=== PATIENT | female | born 1955 | race Caucasian/White ===

== ENCOUNTER → 2017-03-16 | Outpatient (CLI) | payer BC ==
[~2017-03-16] MED LIST: CHLO50TA PO; MELO7.5T6 PO; PRM/45 PO; TRAM-453 PO
--- NOTE | 2017-03-16 15:31 | MAMMOGRAPHY REPORT ---
BILATERAL DIGITAL SCREENING MAMMOGRAM TOMOSYNTHESIS WITH CAD: 03/16/2017 CLINICAL HISTORY: Routine screening. TECHNIQUE: Breast tomosynthesis in addition to standard 2D mammography was performed. Current study was also evaluated with a Computer Aided Detection (CAD) system. COMPARISON: Comparison is made to exams dated: 03/10/2016 mammogram, 02/26/2015 mammogram, 02/25/2014 [facility] mogram, 02/18/2013 mammogram, 07/12/2011 mammogram - [facility], and 05/04/2009. BREAST COMPOSITION: There are scattered areas of fibroglandular density in both breasts. FINDINGS: There are stable asymmetries in the lateral aspect of each breast. No new suspicious mass, architectural distortion or cluster of microcalcifications is seen. IMPRESSION: ACR BI-RADS CATEGORY 1: NEGATIVE There is no mammographic evidence of malignancy. A 1 year screening mammogram is recommended. The pa tient will receive written notification of the results. Approximately 10% of breast cancers are not detected with mammography. A negative mammographic report should not delay biopsy if a clinically suggestive mass is present. Molly Gamino M.D. ay/:03/16/2017 14:18:45 Drafter Civil: Dawson SCHMIDT(Johanne)([place]), [facility] letter sent: Normal 1/2 BI-RADS Code: ACR BI-RADS Category 1: Negative
== END | disposition home or self-care (01) ==
LOC: C.MAMM 10:34
PROVIDERS: ATTEND Family Medicine
DX: Z12.31 Encounter for screening mammogram for malignant neoplasm of breast (principal)

== ENCOUNTER 2020-05-30 10:31 | Inpatient (IN) ==
[2020-05-30] MEDS ORDERED: SODIUM CHLORIDE 0.9% 1000ML 2,000 ML IV ONE (10:48)
[2020-05-30] MEDS ORDERED: MoRPHine SULFATE 4 MG/ML 1 ML CARP\\VIAL IV STA (10:48)
--- NOTE | 2020-05-30 10:53 | Emergency Department Note ---
Impression & Plan Acute flank pain, Fever, Abdominal pain, Back pain ED Provider Note NAME: DHRUV LO AGE: 64 SEX: F : 1955 ARRIVES VIA: Walk-In INFORMANT: Patient ED PROVIDER(S): Seth Michaels DO CHIEF COMPLAINT: Right flank pain HPI: Patient is a 64-year-old female who has been having left hip pain for the past 3 to 4 months off and on. It gradually moved to her bilateral lower back and now is located on her right flank. She notes the right flank pain has been present since this past or Sunday. She admits to a fever last night of 101. She admits to nausea. She believes nausea is secondary to the pain. Pain comes up to the right side of her abdomen and she has right lower quadrant pain. She has a previous total hysterectomy. No other abdominal surgeries. No dysuria urgency or frequency. Denies any chest pain or shortness of breath. No other exacerbating or remitting factors. ROS: See above HPI for pertinent positives & negatives. A total of 10 systems reviewed and were otherwise negative. PAST MEDICAL HISTORY:See Below PAST SURGICAL HISTORY:See Below FAMILY HISTORY:See Below SOCIAL HISTORY:See Below HOME MEDICATIONS:See Below ALLERGIES:See Below VITALS:See Below PHYSICAL EXAMINATION: GENERAL: Sitting up in bed, alert, well appearing, well nourished, no distress, non-toxic EYE EXAM: normal conjunctiva. OROPHARYNX: no exudate, no erythema, lips, buccal mucosa, and tongue normal and mucous membranes are moist NECK: supple, no nuchal rigidity, no adenopathy, non-tender LUNGS: Clear to auscultation. Normal chest wall mechanics HEART: no murmurs, S1 normal and S2 normal ABDOMEN: abdomen soft, tender palpation throughout right flank and right lower quadrant, normo-active bowel sounds, no masses, no rebound or guarding. BACK: Significant pain on palpation of right gluteus and lower back. SKIN: no rashes and no bruising UPPER EXTREMITIES: upper extremities are grossly normal. LOWER EXTREMITIES: Flexion and extension of the hips, knees, ankles, and EHL 5/5 bilaterally. Gross sensation is intact. DPs are 2/4 bilateral. Patellar and Achilles reflexes are 2/4 bilateral NEURO EXAM: Normal sensorium, cranial nerves II-XII grossly intact, normal speech, no gross weakness of arms, no gross weakness of legs. MEDICAL DECISION MAKING: Patient is a 64-year-old female who presents the ER for symptoms as initially started of her left hip and now has been in the right flank. IV was established blood work was obtained. Complaining of fevers at home. Presentation she was found be tachycardic at 110. Vitals were otherwise stable. Labs show no significant leukocytosis or anemia. INR was unremarkable. BMP with chloride of 109. LFTs bilirubin was unremarkable. Lipase was normal. UA was contaminated with multiple epithelial cells. Do not believe is consistent with infection. C T abdomen pelvis and lumbar spine showed no acute pathology. MRI of the lumbar spine was performed due to the midline lower back pain and fevers. This was unremarkable but did show some T2 signaling in the paraspinal region. Question inflammation versus infection. Patient was given a dose of IV antibiotics after long discussion. She was given IV narcotics as well as 1 dose of Ativan to get through the MR as she is claustrophobic. She was updated bedside discussed with the hospitalist for further evaluation and observation. Triage Nursing notes reviewed. Prior medical records reviewed Vital Signs: reviewed and remarkable for tachycardia Differential diagnosis: Differential diagnosis includes etiologies such as sepsis, UTI, pneumonia, metabolic, electrolyte abnormalities, cardiac sources, intracerebral event, toxicologic, neurological, as well as others were entertained. ER treatment provided: See below Diagnostics interpreted by me: ECG: none Cardiac Monitoring: An order was placed for continuous cardiac monitoring. The monitor shows a rate of 101 with sinus rhythm. Laboratory studies: As stated above and show below. Imaging studies: CT abdomen pelvis and CT lumbar spine showed no acute pathology MR lumbar spine shows T2 signal flair paraspinal musculature Consultation(s): Discussed with Dr. Jose L Gil for further evaluation. ED COURSE: Procedures: none Critical Care: None Past Med/Surg History Medical History (Updated 05/30/20 @ 16:33 by Seth Michaels DO) ASD (atrial septal defect) Idiopathic peripheral neuropathy Migraine headache Nephrolithiasis Ovarian cyst Vitamin D deficiency Surgical History (Updated 11/20/19 @ 14:12 by Erika Bello PA-C) History of cardiac catheterization History of dilatation and curettage History of foot surgery History of hysterectomy History of laparoscopy History of lithotripsy History of total left knee replacement History of tubal ligation Family History (Updated 11/20/19 @ 14:14 by Erika Bello PA-C) Mother Dementia Diabetes Heart disease Father Diabetes Heart disease Sister Diabetes Other Cancer Social History Smoking Status: Never smoker Hx Alcohol Use: Yes Hx Substance Use: No marital status: current occupational status: employed current occupation: reservations manager Feels Safe at Home: Yes Allergies Allergies Allergy/AdvReac Type Severity Reaction Status Date / Time Iodinated Contrast Media Allergy Unknown RESP Verified 05/30/20 12:29 DISTRESS, SWELLING, HIVES FROM CONTRAST MEDIA levofloxacin [From Levaquin] Allergy Verified 05/30/20 12:29 Home Meds Home Medications Medication Instructions Recorded Confirmed aspirin 81 mg tablet,delayed 81 mg PO QAM tab 05/28/19 05/30/20 release nitroglycerin 0.4 mg sublingual 0.4 mg SL UD tab 05/28/19 05/30/20 tablet Previous Rx's Medication Instructions Recorded CPAP Machine #1 [id number] 05/30/19 Results & Data (ED) Vital Signs Vital Signs - 24 hr 05/30/20 10:33 05/30/20 11:01 05/30/20 11:31 Temperature 37.6 C H Temperature Source Oral Pulse Rate 109 H 83 76 Pulse Rate [Finger] Pulse Rate from SpO2 Sensor 84 76 Respiratory Rate 18 17 25 H Respiratory Effort / Characteristics Non-Labored Spontaneous Respiratory Depth Normal Blood Pressure 118/82 144/68 H 108/96 Blood Pressure [Left Arm] Blood Pressure Mean 94 79 99 Blood Pressure Mean [Left Arm] Pulse Oximetry 93 96 94 Oxygen Delivery Method Room Air Sepsis Recent Fever Within 48 Hours No Sepsis New/Unexplained Change in Mental Status N/A Sepsis Action Taken by Nursing No Action Required 05/30/20 12:01 05/30/20 12:16 05/30/20 12:30 Temperature Temperature Source Pulse Rate 72 81 84 Pulse Rate [Finger] Pulse Rate from SpO2 Sensor 76 80 81 Respiratory Rate 18 18 13 Respiratory Effort / Characteristics Respiratory Depth Blood Pressure 92/56 L 125/56 L 131/81 Blood Pressure [Left Arm] Blood Pressure Mean 66 82 112 Blood Pressure Mean [Left Arm] Pulse Oximetry 96 97 96 Oxygen Delivery Method Sepsis Recent Fever Within 48 Hours Sepsis New/Unexplained Change in Mental Status Sepsis Action Taken by Nursing 05/30/20 12:38 05/30/20 14:17 05/30/20 14:18 Temperature 36.9 C Temperature Source Oral Pulse Rate Pulse Rate [Finger] 80 Pulse Rate from SpO2 Sensor Respiratory Rate 14 Respiratory Effort / Characteristics Non-Labored Spontaneous Respiratory Depth Blood Pressure Blood Pressure [Left Arm] 102/64 Blood Pressure Mean Blood Pressure Mean [Left Arm] 76 Pulse Oximetry 94 94 Oxygen Delivery Method Room Air Room Air Sepsis Recent Fever Within 48 Hours Sepsis New/Unexplained Change in Mental Status Sepsis Action Taken by Nursing Laboratory Data Result diagrams: 05/30/20 10:59 05/30/20 10:59 Lab Results 05/30/20 05/30/20 05/30/20 Range/Units 10:54 10:59 10:59 WBC 10.51 (4.8-10.8) K/uL RBC 4.43 (4.2-5.4) M/uL Hgb 13.0 (12.0-16.0) g/dL Hct 39.8 (37-47) % MCV 89.8 (80-100) fL MCH 29.3 (25-34) pg MCHC 32.7 (32-36) g/dL RDW Std Deviation 45.6 (36.4-46.3) fL RDW Coeff of Taras 13.8 (11.5-14.5) % Plt Count 269 (130-400) K/uL MPV 9.4 (7.4-10.4) fL Immature Gran % (Auto) 0.2 % Neut % (Auto) 81.0 % Lymph % (Auto) 11.3 % [place] % (Auto) 6.8 % Eos % (Auto) 0.6 % Baso % (Auto) 0.1 % Neut # (Auto) 8.52 H (1.4-6.5) K/uL Lymph # (Auto) 1.19 L (1.2-3.4) K/uL [place] # (Auto) 0.71 H (0.11-0.59) K/uL Eos # (Auto) 0.06 (0-0.5) K/uL Baso # (Auto) 0.01 (0-0.2) K/uL Immature Gran # (Auto) 0.02 (0.00-0.02) K/uL ESR (0-21) mm/hr PT 11.4 (9.0-12.0) Seconds INR 1.1 (0.9-1.1) APTT 29.3 (21.0-31.0) Seconds PTT Ratio 1.1 Sodium (136-145) mmol/L Potassium (3.5-5.1) mmol/L Chloride (98-107) mmol/L Carbon Dioxide (21-32) mmol/L Anion Gap (3-11) BUN (7-18) mg/dl Creatinine (0.6-1.2) mg/dl Est Cr Clr Drug Dosing ml/min Est GFR ( Amer) Est GFR (Non-Af Amer) BUN/Creatinine Ratio (10-20) Glucose (70-99) mg/dl Lactate (0.4-2.0) mmol/L Calcium (8.5-10.1) mg/dl Magnesium (1.8-2.4) mg/dl Total Bilirubin (0.2-1) mg/dl AST (15-37) U/L ALT (12-78) U/L Alkaline Phosphatase (45-117) U/L Total Protein (6.4-8.2) gm/dl Albumin (3.4-5.0) gm/dl Globulin (2.5-4.0) gm/dl Albumin/Globulin Ratio (0.9-2) Lipase (73-393) U/L Procalcitonin (0-0.5) ng/ml Urine Color Dark Yellow Urine Appearance Clear (Clear) Urine pH 5.0 (4.5-7.5) Ur Specific [place] 1.026 (1.000-1.030) Urine Protein Negative (Negative) Urine Glucose (UA) Negative (Negative) Urine Ketones Negative (Negative) Urine Blood Trace H (Negative) Urine Nitrite Negative (Negative) Urine Bilirubin Negative (Negative) Urine Urobilinogen Negative (Negative) Ur Leukocyte Esterase Trace H (Negative) Urine WBC (Auto) 1-5 (0-5) /hpf Urine RBC (Auto) 0-4 (0-4) /hpf U Hyaline Cast (Auto) 1-5 (0-5) /lpf U Epithel Cells (Auto) >30 H (0-5) /lpf Urine Bacteria (Auto) 1+ H (Negative) Urine Mucus Present A (None Prsent) 05/30/20 05/30/20 05/30/20 Range/Units 10:59 10:59 10:59 WBC (4.8-10.8) K/uL RBC (4.2-5.4) M/uL Hgb (12.0-16.0) g/dL Hct (37-47) % MCV (80-100) fL MCH (25-34) pg MCHC (32-36) g/dL RDW Std Deviation (36.4-46.3) fL RDW Coeff of Taras (11.5-14.5) % Plt Count (130-400) K/uL MPV (7.4-10.4) fL Immature Gran % (Auto) % Neut % (Auto) % Lymph % (Auto) % [place] % (Auto) % Eos % (Auto) % Baso % (Auto) % Neut # (Auto) (1.4-6.5) K/uL Lymph # (Auto) (1.2-3.4) K/uL [place] # (Auto) (0.11-0.59) K/uL Eos # (Auto) (0-0.5) K/uL Baso # (Auto) (0-0.2) K/uL Immature Gran # (Auto) (0.00-0.02) K/uL ESR (0-21) mm/hr PT (9.0-12.0) Seconds INR (0.9-1.1) APTT (21.0-31.0) Seconds PTT Ratio Sodium 138 (136-145) mmol/L Potassium 3.7 (3.5-5.1) mmol/L Chloride 109 H (98-107) mmol/L Carbon Dioxide 22 (21-32) mmol/L Anion Gap 8.0 (3-11) BUN 15 (7-18) mg/dl Creatinine 0.88 (0.6-1.2) mg/dl Est Cr Clr Drug Dosing 72.8 ml/min Est GFR ( Amer) 81.6 Est GFR (Non-Af Amer) 70.4 BUN/Creatinine Ratio 17.6 (10-20) Glucose 123 H (70-99) mg/dl Lactate 1.4 (0.4-2.0) mmol/L Calcium 8.8 (8.5-10.1) mg/dl Magnesium 2.1 (1.8-2.4) mg/dl Total Bilirubin 0.8 (0.2-1) mg/dl AST 15 (15-37) U/L ALT 22 (12-78) U/L Alkaline Phosphatase 69 (45-117) U/L Total Protein 8.3 H (6.4-8.2) gm/dl Albumin 3.3 L (3.4-5.0) gm/dl Globulin 5.0 H (2.5-4.0) gm/dl Albumin/Globulin Ratio 0.7 L (0.9-2) Lipase 108 (73-393) U/L Procalcitonin (0-0.5) ng/ml Urine Color Urine Appearance (Clear) Urine pH (4.5-7.5) Ur Specific [place] (1.000-1.030) Urine Protein (Negative) Urine Glucose (UA) (Negative) Urine Ketones (Negative) Urine Blood (Negative) Urine Nitrite (Negative) Urine Bilirubin (Negative) Urine Urobilinogen (Negative) Ur Leukocyte Esterase (Negative) Urine WBC (Auto) (0-5) /hpf Urine RBC (Auto) (0-4) /hpf U Hyaline Cast (Auto) (0-5) /lpf U Epithel Cells (Auto) (0-5) /lpf Urine Bacteria (Auto) (Negative) Urine Mucus (None Prsent) 05/30/20 05/30/20 Range/Units 10:59 10:59 WBC (4.8-10.8) K/uL RBC (4.2-5.4) M/uL Hgb (12.0-16.0) g/dL Hct (37-47) % MCV (80-100) fL MCH (25-34) pg MCHC (32-36) g/dL RDW Std Deviation (36.4-46.3) fL RDW Coeff of Taras (11.5-14.5) % Plt Count (130-400) K/uL MPV (7.4-10.4) fL Immature Gran % (Auto) % Neut % (Auto) % Lymph % (Auto) % [place] % (Auto) % Eos % (Auto) % Baso % (Auto) % Neut # (Auto) (1.4-6.5) K/uL Lymph # (Auto) (1.2-3.4) K/uL [place] # (Auto) (0.11-0.59) K/uL Eos # (Auto) (0-0.5) K/uL Baso # (Auto) (0-0.2) K/uL Immature Gran # (Auto) (0.00-0.02) K/uL ESR 58 H (0-21) mm/hr PT (9.0-12.0) Seconds INR (0.9-1.1) APTT (21.0-31.0) Seconds PTT Ratio Sodium (136-145) mmol/L Potassium (3.5-5.1) mmol/L Chloride (98-107) mmol/L Carbon Dioxide (21-32) mmol/L Anion Gap (3-11) BUN (7-18) mg/dl Creatinine (0.6-1.2) mg/dl Est Cr Clr Drug Dosing ml/min Est GFR ( Amer) Est GFR (Non-Af Amer) BUN/Creatinine Ratio (10-20) Glucose (70-99) mg/dl Lactate (0.4-2.0) mmol/L Calcium (8.5-10.1) mg/dl Magnesium (1.8-2.4) mg/dl Total Bilirubin (0.2-1) mg/dl AST (15-37) U/L ALT (12-78) U/L Alkaline Phosphatase (45-117) U/L Total Protein (6.4-8.2) gm/dl Albumin (3.4-5.0) gm/dl Globulin (2.5-4.0) gm/dl Albumin/Globulin Ratio (0.9-2) Lipase (73-393) U/L Procalcitonin < 0.05 (0-0.5) ng/ml Urine Color Urine Appearance (Clear) Urine pH (4.5-7.5) Ur Specific [place] (1.000-1.030) Urine Protein (Negative) Urine Glucose (UA) (Negative) Urine Ketones (Negative) Urine Blood (Negative) Urine Nitrite (Negative) Urine Bilirubin (Negative) Urine Urobilinogen (Negative) Ur Leukocyte Esterase (Negative) Urine WBC (Auto) (0-5) /hpf Urine RBC (Auto) (0-4) /hpf U Hyaline Cast (Auto) (0-5) /lpf U Epithel Cells (Auto) (0-5) /lpf Urine Bacteria (Auto) (Negative) Urine Mucus (None Prsent) Administered Medications Discontinued Medications Gadobutrol (Gadobutrol 65ml Vial) 9 ml IV ONCE ONE Stop: 05/30/20 14:18 Last Admin: 05/30/20 14:18 Dose: 9 ml Documented by: [id number] Sodium Chloride (Nss 1000ml) 2,000 mls @ 999 mls/hr IV .Q2H1M ONE Stop: 05/30/20 12:48 Last Infusion: 05/30/20 12:59 Dose: 0 mls/hr Documented by: [id number] Admin: 05/30/20 11:10 Dose: 999 mls/hr Documented by: [id number] Lorazepam (Ativan) 1 mg in 2 mls @ 2 mls/min IV NOW STA Stop: 05/30/20 12:34 Last Admin: 05/30/20 12:51 Dose: 2 mls/min Documented by: [id number] Morphine Sulfate (Morphine Sulfate 4 Mg/Ml 1 Ml Carp\Vial) 4 mg IV NOW STA Stop: 05/30/20 10:49 Last Admin: 05/30/20 11:10 Dose: 4 mg Documented by: [id number] Ondansetron HCl (Ondansetron Inj 2 Mg/Ml 2 Ml Vial) Confirm Administered Dose 4 mg .ROUTE .STK-MED ONE Stop: 05/30/20 11:12 Last Admin: 05/30/20 11:20 Dose: 4 mg Documented by: [id number] Ondansetron HCl (Ondansetron Inj 2 Mg/Ml 2 Ml Vial) 4 mg IV NOW STA Stop: 05/30/20 12:03 Last Admin: 05/30/20 12:07 Dose: 4 mg Documented by: [id number] Discharge Plan Visit Data Chief Complaint: Back Injury/Pain Stated Complaint: RT HIP PAIN, LOWER BACK PAIN INTO GROIN ED Provider: Seth Michaels Discharge Problem: Acute flank pain, Fever, Abdominal pain, Back pain Forms Stand Alone Forms: [facility] Xlumena Prescriptions Prescriptions: No Action aspirin 81 mg tablet,delayed release (DR/EC) 81 mg PO QAM RF: 0 nitroglycerin 0.4 mg tablet, sublingual 0.4 mg SL UD RF: 0 (DME) CPAP Machine Misc See Dose Instructions .ROUTE .MEDSUPPLY Qty: 1 RF: 0 Discharge Problem: Fever Qualifiers: Fever type: unspecified Qualified Code(s): R50.9 - Fever, unspecified Abdominal pain Qualifiers: Abdominal location: unspecified location Qualified Code(s): R10.9 - Unspecified abdominal pain Back pain Qualifiers: Back pain location: low back pain Chronicity: acute Back pain laterality: right Sciatica presence: unspecified whether sciatica present Qualified Code(s): M54.5 - Low back pain
[2020-05-30] MEDS ORDERED: ONDANSETRON INJ 2 MG/ML 2 ML VIAL ONE (11:11)
[2020-05-30 11:12] LABS: Basophils # (auto) 0.01 K/uL (0-0.2); Basophils % (auto) 0.1 %; Eosinophils # (auto) 0.06 K/uL (0-0.5); Eosinophils % (auto) 0.6 %; Hematocrit (blood only) 39.8 % (37-47); Immature Granulocytes # (auto) 0.02 K/uL (0.00-0.02); Immature Granulocytes % (auto) 0.2 %; Lymphocytes # (auto) 1.19 K/uL (1.2-3.4); Lymphocytes % (auto) 11.3 %; Mean Corpuscular Hemoglobin 29.3 pg (25-34); Mean Corpuscular Hgb Conc 32.7 g/dL (32-36); Mean Corpuscular Volume 89.8 fL (80-100); Mean Platelet Volume 9.4 fL (7.4-10.4); Monocytes # (auto) 0.71 K/uL (0.11-0.59); Monocytes % (auto) 6.8 %; Neutrophils # (auto) 8.52 K/uL (1.4-6.5); Platelet Count 269 K/uL (130-400); RDW Coefficient of Variation 13.8 % (11.5-14.5); RDW Standard Deviation 45.6 fL (36.4-46.3); Red Blood Count 4.43 M/uL (4.2-5.4); White Blood Count 10.51 K/uL (4.8-10.8)
--- NOTE | 2020-05-30 11:13 | XRay Report ---
XR chest 1V portable CLINICAL HISTORY: SEPSIS COMPARISON STUDY: No previous studies for comparison. FINDINGS: The heart is at the upper limits of normal in size. There is no failure. There is no focal pulmonary consolidation. There are no pleural effusions. There are minor left basilar atelectatic emily nges[ IMPRESSION: No active disease in the chest. ACT 112: Negative or not required by law. Electronically signed by: Manuel Mace M.D. 05/30/2020 11:12 AM
[2020-05-30 11:22] LABS: INR 1.1 (0.9-1.1); Partial Thromboplastin Ratio 1.1; Partial Thromboplastin Time 29.3 Seconds (21.0-31.0); Prothrombin Time 11.4 Seconds (9.0-12.0)
[2020-05-30 11:28] LABS: Appearance Urine Clear (Clear); Bilirubin Urine Negative (Negative); Blood Urine Trace (Negative); Color Urine Dark Yellow; Epithelial Cell Urine Auto >30 /lpf (0-5); Glucose Urine UA Negative (Negative); Ketones Urine Negative (Negative); Leukocyte Esterase Urine Trace (Negative); Nitrite Urine Negative (Negative); Protein Urine Negative (Negative); RBC Urine Automated 0-4 /hpf (0-4); Specific Gravity Urine 1.026 (1.000-1.030); Urobilinogen Urine Negative (Negative)
[2020-05-30 11:29] LABS: Potassium 3.7 mmol/L (3.5-5.1)
[2020-05-30 11:30] LABS: Albumin Level 3.3 gm/dl (3.4-5.0); BUN Creatinine Ratio 17.6 (10-20); Calcium 8.8 mg/dl (8.5-10.1); Creatinine Clr Calc Pharmacy 72.8 ml/min; Est GFR (African American) 81.6; Est GFR (Non-African American) 70.4; Magnesium 2.1 mg/dl (1.8-2.4)
[2020-05-30 11:32] LABS: Albumin Globulin Ratio 0.7 (0.9-2); Bilirubin,Total 0.8 mg/dl (0.2-1); Total Protein 8.3 gm/dl (6.4-8.2)
[2020-05-30 12:02] LABS: Bacteria Urine Automated 1+ (Negative); Mucus Urine Present (None Prsent)
[2020-05-30] MEDS ORDERED: ONDANSETRON INJ 2 MG/ML 2 ML VIAL IV STA (12:02)
--- NOTE | 2020-05-30 12:10 | CT Scan Report ---
CT SCAN OF THE ABDOMEN AND PELVIS WITHOUT CONTRAST CLINICAL HISTORY: Right back and flank pain. Sepsis. COMPARISON STUDY: No previous studies for comparison. TECHNIQUE: CT scan of the abdomen and pelvis was performed from the lung bases to the proximal femurs . Images are reviewed in the axial, sagittal, and coronal planes. IV contrast was not administered fo r this examination. A dose lowering technique was utilized adhering to the principles of ALARA. CT DOSE: 1005.68 mGy.cm FINDINGS: Lower chest: There are basilar opacities likely atelectatic Liver: There is hepatic steatosis. No focal hepatic masses are visualized on this noncontrast examina tion Gallbladder: Unremarkable. Spleen: Normal in size and attenuation. Pancreas: Unremarkable. Adrenal glands: There is a 15 mm left adrenal adenoma. Kidneys: There are punctate lower pole right renal calcifications. There are bilateral parapelvic cys ts. There is no ureteral dilatation. There is a punctate calcification abutting the mid right ureter. As there is no ureteral dilatation, this likely represents a phlebolith. No bladder calculi are visu alized Bowel: There are no transition zones indicate bowel obstruction. There is colonic diverticulosis. The re is no evidence of acute diverticulitis. There is no evidence of acute appendicitis. Peritoneum: There is no intraperitoneal free air or abdominal ascites. Vasculature: The abdominal aorta is normal in course and caliber. Adenopathy: None. Pelvic viscera: The uterus is surgically absent Skeletal structures: No destructive osseous lesions are seen. IMPRESSION: 1. Punctate lower pole right renal calcifications 2. No ureteral or bladder calculi identified 3. Bilateral parapelvic renal cysts 4. No evidence of bowel obstruction. No evidence of free air 5. Diverticulosis. No evidence of acute diverticulitis. No evidence of acute appendicitis. 6. 15 mm left adrenal adenoma ACT 112: Negative or not required by law. Electronically signed by: Manuel Mace M.D. 05/30/2020 12:09 PM
--- NOTE | 2020-05-30 12:12 | CT Scan Report ---
CT lumbar spine wo con CT DOSE: CLINICAL HISTORY: lower back pain TECHNIQUE: Helical images were acquired in transverse plane. Reformatted sagittal and coronal images were reviewed. A dose lowering technique was utilized adhering to the principles of ALARA. CONTRAST: No contrast was administered COMPARISON STUDY: None. FINDINGS: L1-2 level: There is no evidence of significant disc bulge or focal herniation. There is no evidence of spinal or foraminal stenosis. L2-3 level: There is a mild circumferential disc bulge. There is mild spinal stenosis. The facet join t arthropathy. L3-4 level: There is a circumferential disc bulge with mild spinal stenosis. There is facet joint art hropathy. L4-5 level: There is a circumferential disc bulge with moderate spinal stenosis. There is facet joint arthropathy. L5-S1 level: There is no evidence of significant disc bulge or focal herniation. There is no evidence of spinal or foraminal stenosis. No fractures or subluxations are visualized. No destructive lesions are evident. IMPRESSION: 1. No acute fractures or subluxations identified 2. Mild to moderate multilevel spondylytic changes with multilevel disc bulges and multilevel spinal canal narrowing ACT 112: Negative or not required by law. Electronically signed by: Manuel Mace M.D. 05/30/2020 12:11 PM
[2020-05-30] MEDS ORDERED: LORazepam 1 MG/2 ML VIAL IV STA (12:33)
[2020-05-30] MEDS ORDERED: GADOBUTROL 65ML VIAL IV ONE (14:17)
--- NOTE | 2020-05-30 14:36 | Magnetic Resonance Report ---
MR lumbar spine wo/w con CLINICAL HISTORY: fever back pain TECHNIQUE: Sagittal and axial T1, T2 and STIR images were obtained. Images were acquired before and a fter the administration of 9 cc of intravenous Gadavist. COMPARISON STUDY: CT scan dated 05/30/2020 OBSERVATIONS: There are no areas of marrow replacement to indicate neoplasm. There are no areas of marrow edema to indicate discitis or osteomyelitis. L1-2: No disc protrusions or extrusions. No evidence of spinal canal or neural foraminal compromise. L2-3: There is a minor circumferential disc bulge. There is no significant spinal or foraminal stenos is. L3-4: There is a mild circumferential disc bulge. There is minimal spinal canal narrowing. There is n o significant foraminal stenosis L4-5: There is a mild circumferential disc bulge. There is facet joint arthropathy. There is mild spi nal stenosis. There is mild bilateral foraminal narrowing. L5-S1: No disc protrusions or extrusions. No evidence of spinal canal or neural foraminal compromise. Postcontrast studies demonstrate enhancement of the right paraspinal musculature extending from the L 3 to the S1 level. There are no fluid collections to indicate an abscess. This could be on an infecti ous or inflammatory noninfectious basis. Clinical correlation and follow-up recommended The conus medullaris and cauda equina appear normal. IMPRESSION: 1. No evidence of discitis or osteomyelitis 2. Mild multilevel spondylytic changes 3. T2 edema involving the right posterior paraspinal muscles extending from the L3 to the S1 level. T here is post gadolinium enhancement. This could be on an infectious or inflammatory noninfectious bas es. Clinical correlation and follow-up recommended. This finding has been reported in patients with a n epidural abscess although none is visualized on the current study. ACT 112: Negative or not required by law. Electronically signed by: Manuel Mace M.D. 05/30/2020 2:35 PM
[2020-05-30] MEDS ORDERED: PIPERACILLIN/TAZOBACTAM 4.5 GM/120 ML BAG IV ONE (15:21)
[2020-05-30] MEDS ORDERED: PIPERACILL/TAZOBAC CONSULT ACTIVE PRN ×2 (15:21→15:48)
--- NOTE | 2020-05-30 15:39 | History & Physical Report ---
Date of Service May 30, 2020 Assessment & Plan (1) Pain in right paraspinal region: -This is a 64 year old female with symptoms of lower right back pain radiating to right hip, sometimes right medial thigh tingling (may possibly be sciatica pain), with the pain symptoms x 1 week and then on 05/29/2020 she reported experience chills and then the body temperature measured at home to be 101.4 F. Patient presents to ED on 05/30/2020. -MRI Lumbar spine "No evidence of discitis or osteomyelitis. Mild multilevel spondylytic changes. T2 edema involving the right posterior paraspinal muscles extending from the L3 to the S1 level. There is post gadolinium enhancement. This could be on an infectious or inflammatory noninfectious bases. Clinical correlation and follow-up recommended. This finding has been reported in patients with an epidural abscess although none is visualized on the current study." -because of reported fever at home of 101.4, (afebrile on presentation to ED) emergency room doctor concerned that the right paraspinal region is a source of infection and started on IV Zosyn -continue IV Zosyn, follow the blood cultures, and inflammatory markers and creatinine kinase -trial of IV decadron 4 mg IV q8 hours for 24 hours -no history of diabetes mellitus, check HbA1c, check blood sugar glucose and give sliding scale insulin as needed while on IV decadron -prn acetaminophen as needed for pain of fever, prn oxycodone and prn dilaudid depending on pain severity -orthopedic consult -PT/OT evaluations (2) Ambulatory dysfunction: -patient's symptoms of lower right back pain radiating to right hip, sometimes right medial thigh tingling, may possibly be sciatica pain -patient reports that she walks "gingerly at home" -orthopedic consult -PT/OT evaluations (3) Fever: -reported fever as outpatient -IV antibiotics as above, expect WBC to rise with trial of decadron, follow blood cultures and orthopedic consult recommendations, prn acetaminophen as needed for pain of fever (4) ASD (atrial septal defect): -patient takes aspirin daily -patient denies other cardiac issues but she has prn nitroglycerin at home because in the past, when she gets chest discomforts she reports that her outpatient doctor are uncertain whether discomforts are ASD related or coronary artery related Atrophic Right Kidney -chronic outpatient [facility] records notes lists "Gammopathy" in medical problem list but patient denies to her knowledge of any blood disorders explained to her. she denies any personal history of cancer.hospitalist advised patient to discuss and clarify this "gammopathy" issue with her primary care Dr. Durán DVT prophylaxis: SCDs Full Code [place] [phone] History of Present Illness -This is a 64 year old female with symptoms of lower right back pain radiating to right hip, sometimes right medial thigh tingling (may possibly be sciatica pain), with the pain symptoms x 1 week and then on 05/29/2020 she reported experience chills and then the body temperature measured at home to be 101.4 F. Patient presents to ED on 05/30/2020. -MRI Lumbar spine "No evidence of discitis or osteomyelitis. Mild multilevel spondylytic changes. T2 edema involving the right posterior paraspinal muscles extending from the L3 to the S1 level. There is post gadolinium enhancement. This could be on an infectious or inflammatory noninfectious bases. Clinical correlation and follow-up recommended. This finding has been reported in patients with an epidural abscess although none is visualized on the current study." -because of reported fever at home of 101.4, (afebrile on presentation to ED) emergency room doctor concerned that the right paraspinal region is a source of infection and started on IV Zosyn On review of systems: patient denies headaches or dizziness. no nausea. no abdominal pain. no vomiting. no dysuria. no problems with bowel movements. she had a fall in September 2019 but no recent trauma. When asked about ambulation, patient reports she is walking "gingerly" Family Health history of diabetes mellitus Primary Care Provider: Beto Durán MD Allergies Allergy/AdvReac Type Severity Reaction Status Date / Time Iodinated Contrast Media Allergy Unknown RESP Verified 05/30/20 12:29 DISTRESS, SWELLING, HIVES FROM CONTRAST MEDIA levofloxacin [From Levaquin] Allergy Verified 05/30/20 12:29 Home Medications Home Medications Medication Instructions Recorded Confirmed Type aspirin 81 mg tablet,delayed 81 mg PO QAM tab 05/28/19 05/30/20 History release nitroglycerin 0.4 mg sublingual 0.4 mg SL UD tab 05/28/19 05/30/20 History tablet CPAP Machine #1 ea 05/30/19 09/01/19 Rx Past Med/Surg History Medical History (Updated 05/30/20 @ 16:06 by Jose L Gil MD) ASD (atrial septal defect) Idiopathic peripheral neuropathy Migraine headache Nephrolithiasis Ovarian cyst Vitamin D deficiency Surgical History (Updated 11/20/19 @ 14:12 by Erika Bello PA-C) History of cardiac catheterization History of dilatation and curettage History of foot surgery History of hysterectomy History of laparoscopy History of lithotripsy History of total left knee replacement History of tubal ligation Family History (Updated 11/20/19 @ 14:14 by Erika Bello PA-C) Mother Dementia Diabetes Heart disease Father Diabetes Heart disease Sister Diabetes Other Cancer Social History Smoking Status: Never smoker Hx Alcohol Use: Yes Hx Substance Use: No marital status: current occupational status: employed current occupation: manager medicaid Feels Safe at Home: Yes Review of Systems Review of Systems: All systems reviewed & are unremarkable except as noted in Subjective Physical Exam Constitutional: WD/WN, vitals as above Eyes: PERRL, conjunctivae normal, anicteric sclerae EOM intact bilaterally ENMT: external ear and nose normal, oropharynx normal Neck: trachea midline, no thyromegaly normal visual inspection Respiratory: normal respiratory effort, lungs clear to auscultation Cardiovascular: Rate/Rhythm: regular rate and regular rhythm Gastrointestinal (Abdomen): normal bowel sounds, soft, nontender, no hepatosplenomegaly Musculoskeletal: no point tenderness of back or right hip or thigh on palpation on my exam Neurologic: PERRL, EOMI, accommodation nl, no face palsy, no dysarthria moves all extremities Psychiatric: A+Ox3, euthymic affect Results & Data Results & [facility] ([facility]) Vital Signs (Past 12 Hours) Vital Signs Temp Pulse Pulse Resp BP BP Pulse Ox 05/30/20 14:18 94 05/30/20 14:17 80 14 102/64 94 05/30/20 12:38 36.9 C 05/30/20 12:30 84 13 131/81 96 05/30/20 12:16 81 18 125/56 L 97 05/30/20 12:01 72 18 92/56 L 96 05/30/20 11:31 76 25 H 108/96 94 05/30/20 11:01 83 17 144/68 H 96 05/30/20 10:33 37.6 C H 109 H 18 118/82 93
[2020-05-30] MEDS ORDERED: HYDROmorphone INJ 0.5 MG/0.5 ML SYR IV PRN (15:40)
[2020-05-30] MEDS ORDERED: ACETAMINOPHEN 325 MG TAB PO PRN (15:40)
[2020-05-30] MEDS ORDERED: NITROGLYCERIN SL 0.4 MG/TAB TAB SL PRN (15:43)
[2020-05-30] MEDS ORDERED: dexAMETHasone 4 MG in DEXTROSE 5% 25 ML IV SCH (15:45)
[2020-05-30] MEDS ORDERED: GLUCAGON FOR INJ 1 MG VIAL SQ PRN (15:47)
[2020-05-30] MEDS ORDERED: GLUCOSE 40% GEL 15 GM TUBE PO PRN (15:47)
[2020-05-30] MEDS ORDERED: CARBOHYDRATES FOR HYPOGLYCEMIA PO PRN (15:47)
[2020-05-30] MEDS ORDERED: GLUCOSE 10 TABS/TUBE PO PRN (15:47)
[2020-05-30] MEDS ORDERED: DEXTROSE 50% 50 ML SYRINGE IV PRN (15:47)
[2020-05-30] MEDS ORDERED: PROMETHAZINE HCL 6.25 MG in SODIUM CHLORIDE 0.9% 50 ML IV PRN (15:49)
[2020-05-30] MEDS ORDERED: DEXAMETHASONE SOD INJ 4 MG/ML VIAL ONE (16:32)
[2020-05-30 17:24] LABS: Folate (Folic Acid) 17.42 ng/ml (>5.38)
[2020-05-30] MEDS: INSULIN ASPART 100 UNITS/ML 3 ML PEN SC SCH ×2 (18:15→20:39)
[2020-05-30] MEDS: DEXAMETHASONE SOD PHOSPHATE 4 MG in SYRINGE 0 ML IV SCH (19:27)
[2020-05-30] MEDS: DOCUSATE SODIUM 100 MG CAP PO SCH (20:25)
[2020-05-30] MEDS: PIPERACILLIN/TAZOBACTAM 3.375 GM in DEXTROSE 5% 100 ML IV SCH (23:10)
[2020-05-31] MEDS: DEXAMETHASONE SOD PHOSPHATE 4 MG in SYRINGE 0 ML IV SCH ×3 (01:05→16:56)
[2020-05-31] MEDS: PIPERACILLIN/TAZOBACTAM 3.375 GM in DEXTROSE 5% 100 ML IV SCH ×3 (05:47→21:02)
[2020-05-31 06:41] LABS: Estimated Average Glucose 126 mg/dl
[2020-05-31] MEDS: INSULIN ASPART 100 UNITS/ML 3 ML PEN SC SCH ×4 (07:43→20:47)
[2020-05-31] MEDS: ASPIRIN 81 MG ECTAB PO SCH (08:03)
[2020-05-31] MEDS: SENNA 8.6 MG TAB PO SCH (08:03)
[2020-05-31] MEDS: DOCUSATE SODIUM 100 MG CAP PO SCH ×2 (08:04→20:45)
[2020-05-31 08:41] LABS: Hematocrit (blood only) 37.5 % (37-47); Hemoglobin 12.4 g/dL (12.0-16.0); Lymphocytes # (auto) 0.68 K/uL (1.2-3.4); Lymphocytes % (auto) 9.6 %; Mean Corpuscular Hemoglobin 29.5 pg (25-34); Mean Corpuscular Hgb Conc 33.1 g/dL (32-36); Mean Corpuscular Volume 89.1 fL (80-100); Mean Platelet Volume 9.6 fL (7.4-10.4); Monocytes # (auto) 0.08 K/uL (0.11-0.59); Monocytes % (auto) 1.1 %; Neutrophils # (auto) 6.31 K/uL (1.4-6.5); Neutrophils % (auto) 89.3 %; Platelet Count 287 K/uL (130-400); RDW Coefficient of Variation 13.6 % (11.5-14.5); RDW Standard Deviation 44.5 fL (36.4-46.3); Red Blood Count 4.21 M/uL (4.2-5.4); White Blood Count 7.07 K/uL (4.8-10.8)
[2020-05-31 09:09] LABS: Albumin Level 3.1 gm/dl (3.4-5.0); BUN Creatinine Ratio 19.5 (10-20); Calcium 9.3 mg/dl (8.5-10.1); Est GFR (Non-African American) 80.2; Potassium 3.7 mmol/L (3.5-5.1)
[2020-05-31 09:11] LABS: Albumin Globulin Ratio 0.6 (0.9-2); Bilirubin,Total 0.6 mg/dl (0.2-1); Globulin 5.1 gm/dl (2.5-4.0); Total Protein 8.2 gm/dl (6.4-8.2)
--- NOTE | 2020-05-31 09:43 | Hospitalist Progress Note ---
Date of Service May 31, 2020 Assessment & Plan (1) Pain in right paraspinal region: 64 year old female with symptoms of chronic intermittent lower right back pain radiating to right hip, sometimes right medial thigh tingling with the pain symptoms x 1 week and then on 05/29/2020 she reported experience chills and then the body temperature measured at home to be 101.4 F. Patient presents to ED on 05/30/2020. -MRI Lumbar spine "No evidence of discitis or osteomyelitis. Mild multilevel s pondylytic changes. T2 edema involving the right posterior paraspinal muscles extending from the L3 to the S1 level. There is post gadolinium enhancement. This could be on an infectious or inflammatory noninfectious bases. Clinical correlation and follow-up recommended. This finding has been reported in patients with an epidural abscess although none is visualized on the current study." Differentials include Paraspinal abscess, iliopsoas bursitis Considering history of pain referred to right hip/groin/thigh, reported fever at home, elevated CRP/ESR, MRI reporting ?infectious or inflammatory paraspinal muscle findings. No leukocytosis Has not required much pain meds since admission Continue empiric antibiotics for now Getting iv decadron Blood cultures in lab Will appreciate ortho evaluation PT/OT (2) Ambulatory dysfunction: Patient reported some ambulatory dysfunction at home due to above PT/OT evaluations (3) Fever: Reported fever as outpatient No fevers since admission. No leukocytosis Other plan as above (4) ASD (atrial septal defect): Patient takes aspirin daily Patient denies any chest pain. Reports occasion indigestion pain which resolves with burping She follows with Cardiology outpatient for monitoring of her ASD Atrophic Right Kidney per PCP note Chronic Outpatient [facility] records notes lists "Gammopathy" in medical problem list but patient reported to deny to her knowledge of any blood disorders explained to her. she denies any personal history of cancer. DVT prophylaxis: SCDs for now Full Code Admission and Anticipated Discharge Date Admission Date: May 30, 2020 Subjective Patient seen and examined. Reports pain is currently better controlled, mostly in right lower back, about 2/10. No fevers since admission. Denied any chest pain, SOB, CANDELARIA, palpitation, cough Reports occasional indigestion Denied any abd pain, nausea, vomiting, diarrhea Reported that when low back pain was severe, she occasionally felt some referred pain to right groin/inner thigh in the past especially with walking. Physical Exam Constitutional: + well hydrated and + obese; no acute distress Eyes: PERRL, conjunctivae normal, anicteric sclerae ENMT: external ear and nose normal, oropharynx normal Respiratory: normal respiratory effort, lungs clear to auscultation Cardiovascular: RRR, no murmur, no edema Gastrointestinal (Abdomen): normal bowel sounds, soft, nontender, no hepatosplenomegaly Musculoskeletal: no cyanosis or clubbing, extremities motor strength 5/5 No point tenderness on palpation of spine No tenderness on palpation of paraspinal muscles, no overlying erythema or wound Neurologic: PERRL, EOMI, accommodation nl, no face palsy, no dysarthria no focal motor deficits Psychiatric: A+Ox3, euthymic affect Results & Data Results & Data ([facility]) Vital Signs (Past 12 Hours) Vital Signs Temp Pulse Pulse Resp BP Pulse Ox 05/31/20 07:42 66 05/31/20 07:33 36.8 C 65 18 119/71 93 05/31/20 03:00 36.7 C 72 20 105/67 94 05/31/20 01:31 76 05/30/20 23:08 36.7 C 75 20 123/74 92 Laboratory Results Laboratory Results - last 24 hr 05/30/20 05/30/20 05/30/20 10:54 10:59 10:59 WBC 10.51 RBC 4.43 Hgb 13.0 Hct 39.8 MCV 89.8 MCH 29.3 MCHC 32.7 RDW Std Deviation 45.6 RDW Coeff of Taras 13.8 Plt Count 269 MPV 9.4 Immature Gran % (Auto) 0.2 Neut % (Auto) 81.0 Lymph % (Auto) 11.3 Fleming % (Auto) 6.8 Eos % (Auto) 0.6 Baso % (Auto) 0.1 Neut # (Auto) 8.52 H Lymph # (Auto) 1.19 L Fleming # (Auto) 0.71 H Eos # (Auto) 0.06 Baso # (Auto) 0.01 Immature Gran # (Auto) 0.02 ESR PT 11.4 INR 1.1 APTT 29.3 PTT Ratio 1.1 Sodium Potassium Chloride Carbon Dioxide Anion Gap BUN Creatinine Est Cr Clr Drug Dosing Est GFR ( Amer) Est GFR (Non-Af Amer) BUN/Creatinine Ratio Glucose POC Glucose Estimat Average Glucose Hemoglobin A1c Lactate Calcium Magnesium Total Bilirubin AST ALT Alkaline Phosphatase Total Creatine Kinase C-Reactive Protein Total Protein Albumin Globulin Albumin/Globulin Ratio Lipase Vitamin B12 Folate Procalcitonin Urine Color Dark Yellow Urine Appearance Clear Urine pH 5.0 Ur Specific [place] 1.026 Urine Protein Negative Urine Glucose (UA) Negative Urine Ketones Negative Urine Blood Trace H Urine Nitrite Negative Urine Bilirubin Negative Urine Urobilinogen Negative Ur Leukocyte Esterase Trace H Urine WBC (Auto) 1-5 Urine RBC (Auto) 0-4 U Hyaline Cast (Auto) 1-5 U Epithel Cells (Auto) >30 H Urine Bacteria (Auto) 1+ H Urine Mucus Present A 05/30/20 05/30/20 05/30/20 10:59 10:59 10:59 WBC RBC Hgb Hct MCV MCH MCHC RDW Std Deviation RDW Coeff of Taras Plt Count MPV Immature Gran % (Auto) Neut % (Auto) Lymph % (Auto) Fleming % (Auto) Eos % (Auto) Baso % (Auto) Neut # (Auto) Lymph # (Auto) Fleming # (Auto) Eos # (Auto) Baso # (Auto) Immature Gran # (Auto) ESR PT INR APTT PTT Ratio Sodium 138 Potassium 3.7 Chloride 109 H Carbon Dioxide 22 Anion Gap 8.0 BUN 15 Creatinine 0.88 Est Cr Clr Drug Dosing 72.8 Est GFR ( Amer) 81.6 Est GFR (Non-Af Amer) 70.4 BUN/Creatinine Ratio 17.6 Glucose 123 H POC Glucose Estimat Average Glucose Hemoglobin A1c Lactate 1.4 Calcium 8.8 Magnesium 2.1 Total Bilirubin 0.8 AST 15 ALT 22 Alkaline Phosphatase 69 Total Creatine Kinase C-Reactive Protein Total Protein 8.3 H Albumin 3.3 L Globulin 5.0 H Albumin/Globulin Ratio 0.7 L Lipase 108 Vitamin B12 Folate Procalcitonin Urine Color Urine Appearance Urine pH Ur Specific [place] Urine Protein Urine Glucose (UA) Urine Ketones Urine Blood Urine Nitrite Urine Bilirubin Urine Urobilinogen Ur Leukocyte Esterase Urine WBC (Auto) Urine RBC (Auto) U Hyaline Cast (Auto) U Epithel Cells (Auto) Urine Bacteria (Auto) Urine Mucus 05/30/20 05/30/20 05/30/20 10:59 10:59 10:59 WBC RBC Hgb Hct MCV MCH MCHC RDW Std Deviation RDW Coeff of Taras Plt Count MPV Immature Gran % (Auto) Neut % (Auto) Lymph % (Auto) Fleming % (Auto) Eos % (Auto) Baso % (Auto) Neut # (Auto) Lymph # (Auto) Fleming # (Auto) Eos # (Auto) Baso # (Auto) Immature Gran # (Auto) ESR 58 H PT INR APTT PTT Ratio Sodium Potassium Chloride Carbon Dioxide Anion Gap BUN Creatinine Est Cr Clr Drug Dosing Est GFR ( Amer) Est GFR (Non-Af Amer) BUN/Creatinine Ratio Glucose POC Glucose Estimat Average Glucose 126 Hemoglobin A1c 6.0 H Lactate Calcium Magnesium Total Bilirubin AST ALT Alkaline Phosphatase Total Creatine Kinase C-Reactive Protein Total Protein Albumin Globulin Albumin/Globulin Ratio Lipase Vitamin B12 Folate Procalcitonin < 0.05 Urine Color Urine Appearance Urine pH Ur Specific [place] Urine Protein Urine Glucose (UA) Urine Ketones Urine Blood Urine Nitrite Urine Bilirubin Urine Urobilinogen Ur Leukocyte Esterase Urine WBC (Auto) Urine RBC (Auto) U Hyaline Cast (Auto) U Epithel Cells (Auto) Urine Bacteria (Auto) Urine Mucus 05/30/20 05/30/20 05/30/20 16:25 16:25 16:25 WBC RBC Hgb Hct MCV MCH MCHC RDW Std Deviation RDW Coeff of Taras Plt Count MPV Immature Gran % (Auto) Neut % (Auto) Lymph % (Auto) Fleming % (Auto) Eos % (Auto) Baso % (Auto) Neut # (Auto) Lymph # (Auto) Fleming # (Auto) Eos # (Auto) Baso # (Auto) Immature Gran # (Auto) ESR PT INR APTT PTT Ratio Sodium Potassium Chloride Carbon Dioxide Anion Gap BUN Creatinine Est Cr Clr Drug Dosing Est GFR ( Amer) Est GFR (Non-Af Amer) BUN/Creatinine Ratio Glucose POC Glucose Estimat Average Glucose Hemoglobin A1c Lactate Calcium Magnesium Total Bilirubin AST ALT Alkaline Phosphatase Total Creatine Kinase 68 C-Reactive Protein 11.30 H Total Protein Albumin Globulin Albumin/Globulin Ratio Lipase Vitamin B12 462 Folate 17.42 Procalcitonin Urine Color Urine Appearance Urine pH Ur Specific [place] Urine Protein Urine Glucose (UA) Urine Ketones Urine Blood Urine Nitrite Urine Bilirubin Urine Urobilinogen Ur Leukocyte Esterase Urine WBC (Auto) Urine RBC (Auto) U Hyaline Cast (Auto) U Epithel Cells (Auto) Urine Bacteria (Auto) Urine Mucus 10/12/1405/30/20 05/31/20 17:04 20:23 07:39 WBC RBC Hgb Hct MCV MCH MCHC RDW Std Deviation RDW Coeff of Taras Plt Count MPV Immature Gran % (Auto) Neut % (Auto) Lymph % (Auto) Fleming % (Auto) Eos % (Auto) Baso % (Auto) Neut # (Auto) Lymph # (Auto) Fleming # (Auto) Eos # (Auto) Baso # (Auto) Immature Gran # (Auto) ESR PT INR APTT PTT Ratio Sodium Potassium Chloride Carbon Dioxide Anion Gap BUN Creatinine Est Cr Clr Drug Dosing Est GFR ( Amer) Est GFR (Non-Af Amer) BUN/Creatinine Ratio Glucose POC Glucose 105 H 107 H 168 H Estimat Average Glucose Hemoglobin A1c Lactate Calcium Magnesium Total Bilirubin AST ALT Alkaline Phosphatase Total Creatine Kinase C-Reactive Protein Total Protein Albumin Globulin Albumin/Globulin Ratio Lipase Vitamin B12 Folate Procalcitonin Urine Color Urine Appearance Urine pH Ur Specific [place] Urine Protein Urine Glucose (UA) Urine Ketones Urine Blood Urine Nitrite Urine Bilirubin Urine Urobilinogen Ur Leukocyte Esterase Urine WBC (Auto) Urine RBC (Auto) U Hyaline Cast (Auto) U Epithel Cells (Auto) Urine Bacteria (Auto) Urine Mucus 05/31/20 05/31/20 07:52 07:52 WBC 7.07 RBC 4.21 Hgb 12.4 Hct 37.5 MCV 89.1 MCH 29.5 MCHC 33.1 RDW Std Deviation 44.5 RDW Coeff of Taras 13.6 Plt Count 287 MPV 9.6 Immature Gran % (Auto) 0.0 Neut % (Auto) 89.3 Lymph % (Auto) 9.6 Fleming % (Auto) 1.1 Eos % (Auto) 0.0 Baso % (Auto) 0.0 Neut # (Auto) 6.31 Lymph # (Auto) 0.68 L Fleming # (Auto) 0.08 L Eos # (Auto) 0.00 Baso # (Auto) 0.00 Immature Gran # (Auto) 0.00 ESR PT INR APTT PTT Ratio Sodium 140 Potassium 3.7 Chloride 109 H Carbon Dioxide 24 Anion Gap 6.0 BUN 15 Creatinine 0.79 Est Cr Clr Drug Dosing 86.0 Est GFR ( Amer) 93.0 Est GFR (Non-Af Amer) 80.2 BUN/Creatinine Ratio 19.5 Glucose 146 H POC Glucose Estimat Average Glucose Hemoglobin A1c Lactate Calcium 9.3 Magnesium Total Bilirubin 0.6 AST 16 ALT 27 Alkaline Phosphatase 66 Total Creatine Kinase C-Reactive Protein Total Protein 8.2 Albumin 3.1 L Globulin 5.1 H Albumin/Globulin Ratio 0.6 L Lipase Vitamin B12 Folate Procalcitonin Urine Color Urine Appearance Urine pH Ur Specific [place] Urine Protein Urine Glucose (UA) Urine Ketones Urine Blood Urine Nitrite Urine Bilirubin Urine Urobilinogen Ur Leukocyte Esterase Urine WBC (Auto) Urine RBC (Auto) U Hyaline Cast (Auto) U Epithel Cells (Auto) Urine Bacteria (Auto) Urine Mucus Diagnostic Findings MRI Lumbar Spine There are no areas of marrow replacement to indicate neoplasm. There are no areas of marrow edema to indicate discitis or osteomyelitis. L1-2: No disc protrusions or extrusions. No evidence of spinal canal or neural foraminal compromise. L2-3: There is a minor circumferential disc bulge. There is no significant spinal or foraminal stenosis. L3-4: There is a mild circumferential disc bulge. There is minimal spinal canal narrowing. There is no significant foraminal stenosis L4-5: There is a mild circumferential disc bulge. There is facet joint arthropathy. There is mild spinal stenosis. There is mild bilateral foraminal narrowing. L5-S1: No disc protrusions or extrusions. No evidence of spinal canal or neural foraminal compromise. Postcontrast studies demonstrate enhancement of the right paraspinal musculature extending from the L3 to the S1 level. There are no fluid collections to indicate an abscess. This could be on an infectious or inflammatory noninfectious basis. Clinical correlation and follow-up recommended The conus medullaris and cauda equina appear normal. IMPRESSION: 1. No evidence of discitis or osteomyelitis 2. Mild multilevel spondylytic changes 3. T2 edema involving the right posterior paraspinal muscles extending from the L3 to the S1 level. There is post gadolinium enhancement. This could be on an infectious or inflammatory noninfectious bases. Clinical correlation and follow- up recommended. Lumbar CT L1-2 level: There is no evidence of significant disc bulge or focal herniation. There is no evidence of spinal or foraminal stenosis. L2-3 level: There is a mild circumferential disc bulge. There is mild spinal st enosis. The facet joint arthropathy. L3-4 level: There is a circumferential disc bulge with mild spinal stenosis. There is facet joint arthropathy. L4-5 level: There is a circumferential disc bulge with moderate spinal stenosis. There is facet joint arthropathy. L5-S1 level: There is no evidence of significant disc bulge or focal herniation. There is no evidence of spinal or foraminal stenosis. No fractures or subluxations are visualized. No destructive lesions are evident. IMPRESSION: 1. No acute fractures or subluxations identified 2. Mild to moderate multilevel spondylytic changes with multilevel disc bulges and multilevel spinal canal narrowing (1) Fever Fever type: unspecified Qualified Code(s): R50.9 - Fever, unspecified
--- NOTE | 2020-05-31 12:35 | Consultation ---
Date of Consultation May 31, 2020 Assessment & Plan (1) Back pain: Patient's MRI, CT, lab and clinical findings have been reviewed with Dr. Zhang. It is difficult to determine if her MRI results are infectious versus inflammatory. She did present with fever, elevated sed rate and CRP therefore cannot rule out early infection. Nonetheless her pain is greatly improved over the past 24 hours. She is on IV Zosyn. There is no evidence of epidural abscess that would warrant surgical intervention/evacuation. Treatment is therefore conservative. My only other thought due to her ongoing right hip pain with weightbearing would be to consider MRI of the pelvis with and without contrast. This would be to evaluate for further hip pathology. Supervising Physician Co-Signing Physician Notes Dr. Brian Zhang History of Present Illness Is a pleasant 64-year-old female that was admitted yesterday with intractable right lumbar and hip pain as well as a fever. Patient states she has had this similar pain for the past 3 or 4 months. It would be off and on. Her right hip pain was mostly reproduced with weightbearing. It would radiate along her right lumbar area, right groin, right medial thigh to her knee. 3 days ago she reported left-sided lumbar pain and a fever of 101.4. Pain progressively worsened to the right side. Pain was unbearable therefore she presented to the emergency room yesterday. Upon evaluation today she states she feels markedly better. Left lumbar pain has resolved. Denies bowel bladder changes. She is ambulating independently around the room. Attending Physician: Carolin Ngo MD Allergies Allergy/AdvReac Type Severity Reaction Status Date / Time Iodinated Contrast Media Allergy Unknown RESP Verified 05/30/20 12:29 DISTRESS, SWELLING, HIVES FROM CONTRAST MEDIA levofloxacin [From Levaquin] Allergy Verified 05/30/20 12:29 Home Medications Home Medications Medication Instructions Recorded Confirmed Type aspirin 81 mg tablet,delayed 81 mg PO QAM tab 05/28/19 05/30/20 History release nitroglycerin 0.4 mg sublingual 0.4 mg SL UD tab 05/28/19 05/30/20 History tablet CPAP Machine #1 ea 05/30/19 09/01/19 Rx Patient History Medical History ASD (atrial septal defect) Idiopathic peripheral neuropathy Migraine headache Nephrolithiasis Ovarian cyst Vitamin D deficiency Surgical History History of cardiac catheterization History of dilatation and curettage History of foot surgery History of hysterectomy History of laparoscopy History of lithotripsy History of total left knee replacement History of tubal ligation Family History Mother Dementia Diabetes Heart disease Father Diabetes Heart disease Sister Diabetes Other Cancer Social History Smoking Status: Never smoker Hx Alcohol Use: Yes Alcohol type: beer, wine and hard liquor Hx Substance Use: No Preferred Language: Belarusian Communication Ability: Effective Shipping Coordinator Required: No Beliefs That Will Affect Care: None marital status: Current Living Situation: Spouse and Family Current Living Situation Comment: Mother in Law current occupational status: employed current occupation: real estate development manager Other Information That Helps Us Care for You: No Feels Safe at Home: Yes Safety Concerns: Feels Safe At This Time Assistive Devices: Glasses Review of Systems Review of Systems: All systems reviewed & are unremarkable except as noted in HPI & below Physical Exam Physical Exam: Patient is seen in room 263 bed 1. She is alert and oriented x3. She is in no acute distress. She moves in bed with ease. No abnormal skin markings across her thoracolumbar spine. She is mildly tender to palpation over the right lumbar and SI region. She is nontender on the left. Nontender over the greater trochanter regions bilaterally Is a positive logroll on the right. Positive axial loading on the right. Negative logrolling on the left negative axial loading on the left. Strength is 5 5 bilateral EHL, dorsiflexion, plantarflexion, quadriceps, hamstrings, hip flexors, hip abductor's and hip adductor's. Constitutional: WD/WN, vitals as above Eyes: normal visual lepe by confrontation ENMT: external ear and nose normal, oropharynx normal Neck: normal visual inspection Respiratory: normal respiratory effort Cardiovascular: RRR, no murmur, no edema Chest (Breasts): Chest: normal inspection of chest Gastrointestinal (Abdomen): Inspection/Auscultation: abdomen normal to inspection Musculoskeletal: Extremities: strength 5/5 throughout Skin: no rashes, warm and dry Neurologic: normal touch/pain/proprioception and moves all extremities Psychiatric: A+Ox3, euthymic affect Results & Data ([facility]) Vital Signs (Past 12 Hours) Vital Signs Temp Pulse Pulse Resp BP Pulse Ox 05/31/20 11:34 36.8 C 70 18 118/58 L 93 05/31/20 07:42 66 05/31/20 07:33 36.8 C 65 18 119/71 93 05/31/20 03:00 36.7 C 72 20 105/67 94 05/31/20 01:31 76 Diagnostic Findings [facility], [place] [phone] Magnetic Resonance Report Patient: DHRUV LO Date: 05/30/20 MR#: [id number]: [id number] [facility] Acct ID:[id number]: Date: 1955[facility] Zip: [place] [address] Age: 64Location: ED Sex: FRoom/Bed: Att Phy:Diagnosis: RT HIP PAIN, LOWER BACK PAIN INTO GROIN Madeleine Phy: Beto Durán MDService Date: 05/30/20 Fam Phy:Interpreting Phy: Manuel Mace MD Admit Phy: Ordering Phy: Seth Michaels, DO cc: ~ MR lumbar spine wo/w con CLINICAL HISTORY: fever back pain TECHNIQUE: Sagittal and axial T1, T2 and STIR images were obtained. Images were acquired before and after the administration of 9 cc of intravenous Gadavist. COMPARISON STUDY: CT scan dated 05/30/2020 OBSERVATIONS: There are no areas of marrow replacement to indicate neoplasm. There are no areas of marrow edema to indicate discitis or osteomyelitis. L1-2: No disc protrusions or extrusions. No evidence of spinal canal or neural foraminal compromise. L2-3: There is a minor circumferential disc bulge. There is no significant spinal or foraminal stenosis. L3-4: There is a mild circumferential disc bulge. There is minimal spinal canal narrowing. There is no significant foraminal stenosis L4-5: There is a mild circumferential disc bulge. There is facet joint arthropathy. There is mild spinal stenosis. There is mild bilateral foraminal narrowing. L5-S1: No disc protrusions or extrusions. No evidence of spinal canal or neural foraminal compromise. Postcontrast studies demonstrate enhancement of the right paraspinal musculature extending from the L3 to the S1 level. There are no fluid collections to indicate an abscess. This could be on an infectious or inflammatory noninfectious basis. Clinical correlation and follow-up recommended The conus medullaris and cauda equina appear normal. IMPRESSION: 1. No evidence of discitis or osteomyelitis 2. Mild multilevel spondylytic changes 3. T2 edema involving the right posterior paraspinal muscles extending from the L3 to the S1 level. There is post gadolinium enhancement. This could be on an infectious or inflammatory noninfectious bases. Clinical correlation and follow- up recommended. This finding has been reported in patients with an epidural abscess although none is visualized on the current study. ACT 112: Negative or not required by law. Electronically signed by: Manuel Mace M.D. 05/30/2020 2:35 PM Dictated: 05/30/20 142 Transcribed: 05/30/20 1425 (1) Back pain Back pain laterality: right Back pain location: low back pain Chronicity: acute Sciatica presence: unspecified whether sciatica present Qualified Code(s): M54.5 - Low back pain
[2020-05-31] MEDS: OXYCODONE HCL IR 5 MG TAB (IMMEDIATE RELEASE) PO PRN ×2 (14:00→20:44)
--- NOTE | 2020-05-31 16:43 | Electrocardiogram Report ---
Test Reason : Blood Pressure : / mmHG Vent. Rate : 076 BPM Atrial Rate : 076 BPM P-R Int : 148 ms QRS Dur : 094 ms QT Int : 370 ms P-R-T Axes : 022 -18 070 degrees QTc Int : 416 ms Poor data quality, interpretation may be adversely affected Normal sinus rhythm Low voltage QRS Poor R wave progression, consider anterior DC vs. lead placement vs. LVH Incomplete right bundle branch block Abnormal ECG When compared with ECG of 05-OCT-2008 14:10, No significant change was found Confirmed by Javed Merida ([id number]) on 05/31/2020 4:43:37 PM Referred By: REFERRED SELF Confirmed By:Omari Merida
[2020-05-31] MEDS ORDERED: LORazepam 0.5 MG/1 ML VIAL IV STA (21:27)
[2020-05-31] MEDS ORDERED: GADOBUTROL 65ML VIAL IV ONE (22:58)
[2020-06-01] MEDS: DEXAMETHASONE SOD PHOSPHATE 4 MG in SYRINGE 0 ML IV SCH ×2 (01:40→07:44)
[2020-06-01] MEDS: PIPERACILLIN/TAZOBACTAM 3.375 GM in DEXTROSE 5% 100 ML IV SCH (05:49)
[2020-06-01 07:18] LABS: Hematocrit (blood only) 38.2 % (37-47); Hemoglobin 11.6 g/dL (12.0-16.0); Mean Corpuscular Hemoglobin 27.2 pg (25-34); Mean Corpuscular Hgb Conc 30.4 g/dL (32-36); Mean Corpuscular Volume 89.7 fL (80-100); Mean Platelet Volume 9.7 fL (7.4-10.4); Platelet Count 307 K/uL (130-400); RDW Coefficient of Variation 13.8 % (11.5-14.5); RDW Standard Deviation 45.3 fL (36.4-46.3); Red Blood Count 4.26 M/uL (4.2-5.4); White Blood Count 8.84 K/uL (4.8-10.8)
[2020-06-01] MEDS: SENNA 8.6 MG TAB PO SCH (07:43)
[2020-06-01] MEDS: ASPIRIN 81 MG ECTAB PO SCH (07:43)
[2020-06-01] MEDS: DOCUSATE SODIUM 100 MG CAP PO SCH (07:43)
--- NOTE | 2020-06-01 08:00 | Magnetic Resonance Report ---
MR pelvis wo/w con CLINICAL HISTORY: Persistent right hip pain. COMPARISON STUDY: CT scan dated 05/30/2020 FINDINGS: Images were acquired in the axial, sagittal, and coronal planes, before and after the admin istration of 9.5 cc of intravenous Gadavist. There are no areas of marrow replacement to indicate neoplasm. There are no areas of marrow replacement to indicate occult fracture or bone bruise. Mild SI joint ed caterina is likely a degenerative basis. There is no pathologic joint effusion. There is no evidence of av ascular necrosis. There are no pathologically enhancing masses. There is no pathologic pelvic lymphadenopathy. There is sigmoid diverticulosis. The uterus appears alvarez rgically absent. IMPRESSION: 1. No evidence of pathologic marrow replacement 2. No evidence of occult fracture or osteonecrosis 3. No soft tissue masses identified. ACT 112: Negative or not required by law. Electronically signed by: Manuel Mace M.D. 06/01/2020 7:58 AM
[2020-06-01 08:18] LABS: BUN Creatinine Ratio 23.5 (10-20); Calcium 8.9 mg/dl (8.5-10.1); Creatinine Clr Calc Pharmacy 86.1 ml/min; Est GFR (Non-African American) 80.2; Potassium 3.7 mmol/L (3.5-5.1)
[2020-06-01] MEDS: INSULIN ASPART 100 UNITS/ML 3 ML PEN SC SCH ×2 (08:46→11:25)
--- NOTE | 2020-06-01 10:07 | Discharge Summary ---
Date of Service June 01, 2020 Admission HPI Per Admitting Provider 64 year old female with symptoms of lower right back pain radiating to right hip, sometimes right medial thigh tingling (may possibly be sciatica pain), with the pain symptoms x 1 week and then on 05/29/2020 she reported experience chills and then the body temperature measured at home to be 101.4 F. Patient presents to ED on 05/30/2020. -MRI Lumbar spine "No evidence of discitis or osteomyelitis. Mild multilevel spondylytic changes. T2 edema involving the right posterior paraspinal muscles extending from the L3 to the S1 level. There is post gadolinium enhancement. This could be on an infectious or inflammatory noninfectious bases. Clinical correlation and follow-up recommended. This finding has been reported in patients with an epidural abscess although none is visualized on the current study." -because of reported fever at home of 101.4, (afebrile on presentation to ED) emergency room doctor concerned that the right paraspinal region is a source of infection and started on IV Zosyn On review of systems: patient denies headaches or dizziness. no nausea. no abdominal pain. no vomiting. no dysuria. no problems with bowel movements. she had a fall in September 2019 but no recent trauma. When asked about ambulation, patient reports she is walking "gingerly" Admission Exam Per Admitting Provider Constitutional: WD/WN, vitals as above Eyes: PERRL, conjunctivae normal, anicteric sclerae EOM intact bilaterally ENMT: external ear and nose normal, oropharynx normal Neck: trachea midline, no thyromegaly normal visual inspection Respiratory: normal respiratory effort, lungs clear to auscultation Cardiovascular: Rate/Rhythm: regular rate and regular rhythm Gastrointestinal (Abdomen): normal bowel sounds, soft, nontender, no hepatosplenomegaly Musculoskeletal: no point tenderness of back or right hip or thigh on palpation on my exam Neurologic: PERRL, EOMI, accommodation nl, no face palsy, no dysarthria moves all extremities Psychiatric: A+Ox3, euthymic affect Principal Diagnosis Low back pain Discharge Exam Constitutional + well hydrated and + obese; no acute distress Eyes PERRL, conjunctivae normal, anicteric sclerae ENMT external ear and nose normal, oropharynx normal Respiratory normal respiratory effort, lungs clear to auscultation Cardiovascular RRR, no murmur, no edema Gastrointestinal (Abdomen) normal bowel sounds, soft, nontender, no hepatosplenomegaly Musculoskeletal no cyanosis or clubbing, extremities motor strength 5/5 Neurologic PERRL, EOMI, accommodation nl, no face palsy, no dysarthria no focal motor deficits Psychiatric A+Ox3, euthymic affect Discharge Data Allergies Allergy/AdvReac Type Severity Reaction Status Date / Time Iodinated Contrast Media Allergy Unknown RESP Verified 05/30/20 12:29 DISTRESS, SWELLING, HIVES FROM CONTRAST MEDIA levofloxacin [From Levaquin] Allergy Verified 05/30/20 12:29 Consultations 05/30/20 15:21 ED Decision to Admit Stat 05/30/20 15:43 Consult Case Management - Discharge Planning Routine 05/30/20 15:44 Consult Orthopedic Surgery Routine Ordered Studies 05/30/20 11:25 CT abd pelvis wo con Stat Lower chest: There are basilar opacities likely atelectatic Liver: There is hepatic steatosis. No focal hepatic masses are visualized on this noncontrast examination Gallbladder: Unremarkable. Spleen: Normal in size and attenuation. Pancreas: Unremarkable. Adrenal glands: There is a 15 mm left adrenal adenoma. Kidneys: There are punctate lower pole right renal calcifications. There are bilateral parapelvic cysts. There is no ureteral dilatation. There is a punctate calcification abutting the mid right ureter. As there is no ureteral dilatation, this likely represents a phlebolith. No bladder calculi are visualized Bowel: There are no transition zones indicate bowel obstruction. There is colonic diverticulosis. There is no evidence of acute diverticulitis. There is no evidence of acute appendicitis. Peritoneum: There is no intraperitoneal free air or abdominal ascites. Vasculature: The abdominal aorta is normal in course and caliber. Adenopathy: None. Pelvic viscera: The uterus is surgically absent Skeletal structures: No destructive osseous lesions are seen. IMPRESSION: 1. Punctate lower pole right renal calcifications 2. No ureteral or bladder calculi identified 3. Bilateral parapelvic renal cysts 4. No evidence of bowel obstruction. No evidence of free air 5. Diverticulosis. No evidence of acute diverticulitis. No evidence of acute appendicitis. 6. 15 mm left adrenal adenoma CT lumbar spine wo con Stat L1-2 level: There is no evidence of significant disc bulge or focal herniation. There is no evidence of spinal or foraminal stenosis. L2-3 level: There is a mild circumferential disc bulge. There is mild spinal stenosis. The facet joint arthropathy. L3-4 level: There is a circumferential disc bulge with mild spinal stenosis. There is facet joint arthropathy. L4-5 level: There is a circumferential disc bulge with moderate spinal stenosis. There is facet joint arthropathy. L5-S1 level: There is no evidence of significant disc bulge or focal herniation. There is no evidence of spinal or foraminal stenosis. No fractures or subluxations are visualized. No destructive lesions are evident. IMPRESSION: 1. No acute fractures or subluxations identified 2. Mild to moderate multilevel spondylytic changes with multilevel disc bulges and multilevel spinal canal narrowing 05/30/20 12:27 MR lumbar spine wo/w con Stat There are no areas of marrow replacement to indicate neoplasm. There are no areas of marrow edema to indicate discitis or osteomyelitis. L1-2: No disc protrusions or extrusions. No evidence of spinal canal or neural foraminal compromise. L2-3: There is a minor circumferential disc bulge. There is no significant spinal or foraminal stenosis. L3-4: There is a mild circumferential disc bulge. There is minimal spinal canal narrowing. There is no significant foraminal stenosis L4-5: There is a mild circumferential disc bulge. There is facet joint arthropathy. There is mild spinal stenosis. There is mild bilateral foraminal narrowing. L5-S1: No disc protrusions or extrusions. No evidence of spinal canal or neural foraminal compromise. Postcontrast studies demonstrate enhancement of the right paraspinal musculature extending from the L3 to the S1 level. There are no fluid collections to indicate an abscess. This could be on an infectious or inflammatory noninfectious basis. Clinical correlation and follow-up recommended The conus medullaris and cauda equina appear normal. IMPRESSION: 1. No evidence of discitis or osteomyelitis 2. Mild multilevel spondylytic changes 3. T2 edema involving the right posterior paraspinal muscles extending from the L3 to the S1 level. There is post gadolinium enhancement. This could be on an infectious or inflammatory noninfectious bases. Clinical correlation and follow- up recommended. This finding has been reported in patients with an epidural abscess although none is visualized on the current study. 05/31/20 17:15 MR pelvis wo/w con Urgent Images were acquired in the axial, sagittal, and coronal planes, before and after the administration of 9.5 cc of intravenous Gadavist. There are no areas of marrow replacement to indicate neoplasm. There are no areas of marrow replacement to indicate occult fracture or bone bruise. Mild SI joint edema is likely a degenerative basis. There is no pathologic joint effusion. There is no evidence of avascular necrosis. There are no pathologically enhancing masses. There is no pathologic pelvic lymphadenopathy. There is sigmoid diverticulosis. The uterus appears surgically absent. IMPRESSION: 1. No evidence of pathologic marrow replacement 2. No evidence of occult fracture or osteonecrosis 3. No soft tissue masses identified. Hospital Course (1) Pain in right paraspinal region: 64 year old female with symptoms of chronic intermittent lower right back pain radiating to right hip, sometimes right medial thigh tingling with the pain symptoms x 1 week and then on 05/29/2020 she reported experience chills and then the body temperature measured at home to be 101.4 F. Patient presents to ED on 05/30/2020. -MRI Lumbar spine "No evidence of discitis or osteomyelitis. Mild multilevel spondylytic changes. T2 edema involving the right posterior paraspinal muscles extending from the L3 to the S1 level. There is post gadolinium enhancement. This could be on an infectious or inflammatory noninfectious bases. Clinical correlation and follow-up recommended. This finding has been reported in patients with an epidural abscess although none is visualized on the current study." MRI did not show any abscess No leukocytosis Has not required much pain meds since admission Discontinued empiric antibiotics Was evaluated by ortho and PT Received decadron inpatient. Discharged on prednisone for 2 more days (2) Ambulatory dysfunction: Patient reported some ambulatory dysfunction at home due to above Evaluated by PT Use rolling walker as instructed by PT as needed (3) Fever: Reported fever as outpatient No fevers in the hospital No leukocytosis Other plan as above (4) ASD (atrial septal defect): Patient takes aspirin daily Patient denies any chest pain. Reports occasion indigestion pain which resolves with burping She follows with Cardiology outpatient for monitoring of her ASD Atrophic Right Kidney per PCP note Chronic Total Time Total Time Spent Total Time Spent (In Minutes): 35 Total Time Includes: Examination of the Patient, Discharge Planning and Medication Reconciliation Discharge Plan Discharge Items Patient Disposition: Home - Self-Care Reason For Visit: FEVR AT HOME OF 101.4, T2 EDEMA ON MRI SPINE Discharge Diagnosis: Low back pain Prediabetes Activity: Resume your previous activity Non-emergency contact: Primary Care Provider Call non-emergency contact if: you have any medication questions Follow-up/Referrals: Beto Durán MD [Primary Care Provider] - (Date & Time 06/07/2020 11:00 AM Provider Beto Durán MD Department [facility] [place] ) Diet: Carb Consistent or DM2 and Heart Healthy Addtl Attending Provider Instructions: Ms Mederos. You came to the hospital complaining of low back pain. You also reported and episode of fever at home. You were evaluated in the hospital. CT and MRI scans and blood work done did not suggest infection. You were managed with medication and your symptoms improve. Please follow up with your Primary Doctor who may refer you to outpatient physical therapy as needed. Please use tylenol as needed for pain. Only use NSAIDS intermittently for severe pain. Avoid chronic sustained use of NSAIDS like we discussed due to side effects. Please ensure lifestyle modification (exercise, diet, weight loss) we discussed for better management of your blood glucose. It was a pleasure taking care of you. Pending Studies at Discharge: No Stand-Alone Forms: [facility] [employer], Smoking Cessation Medications and DC Order Prescriptions: New acetaminophen 325 mg Tablet 650 mg PO Q6H PRN (Reason: pain) Qty: 50 RF: 0 prednisone 20 mg tablet 20 mg PO DAILY 2 Days Qty: 2 RF: 0 Continued aspirin 81 mg tablet,delayed release (DR/EC) 81 mg PO QAM RF: 0 nitroglycerin 0.4 mg tablet, sublingual 0.4 mg SL UD RF: 0 (DME) CPAP Machine Misc See Dose Instructions .ROUTE .MEDSUPPLY Qty: 1 RF: 0 Discharge Orders: Discharge Order (Routine); Ordered 06/01/20 Ordered By: Carolin Morales/Other Patient Handouts: Prediabetes, A1C Admission Data Admit Date/Time: 05/30/20 15:40 Attending Provider: Carolin Ngo I. Admit Provider: Jose L Gil Primary Care Provider: Beto Durán Other Providers: Jose L Gil ; Brian Zhnag Other Interventions: Discharge Summary Assessment (RN) Last Done: 06/01/20 10:53
[2020-06-02] MEDS ORDERED: INFLUENZA ADMINISTRATION CHARGE ONE (08:00)
[2020-06-02] MEDS ORDERED: INFLUENZA VIRUS QUAD VACCINE 0.5 ML SYR IM ONE (08:00)
== END 2020-06-01 12:37 | disposition home or self-care (01) | DRG 552 ==
LOC: ED 10:31 → 2W 15:40 → SUATTDRO 15:40 → 2W 16:49